=== PATIENT | female | born 1970 | race Caucasian/White ===

== ENCOUNTER 2022-05-22 09:30 | Emergency (ER) | payer OTHER, SELFPAY ==
[2022-05-22 09:34] VITALS: BP 129/70; PULSE 72; RESP 20; TEMP 36.6; O2SAT 100
--- NOTE | 2022-05-22 09:40 | ED.URI ---
HPI - URI/Sore Throat General Chief Complaint: Upper Respiratory Infection Stated Complaint: sore throat and cough Time Seen by Provider: 05/22/22 09:40 Source: patient and RN notes reviewed History of Present Illness HPI Narrative: patient is a 51-year-old female who presents to the Urgent Care with complaints of sore throat and cough. Patient states it started 2 days ago. States that she had a negative COVID test at home. Patient has been taking NyQuil for her symptoms. Denies any ill exposures. Denies of fever, nausea or vomiting. Denies shortness breath or wheezing. No other acute complaints. No acute distress noted. Patient aware of the plan care. Some parts of this dictation were generated by voice recognition software and may contain typographical and/or grammatical inaccuracies. Related Data Home Medications Medication Instructions Recorded Confirmed losartan 100 mg tablet 100 mg PO DAILY 05/22/22 05/22/22 Allergies Allergy/AdvReac Type Severity Reaction Status Date / Time No Known Allergies Allergy Verified 05/22/22 09:48 Review of Systems Review of Systems: CONSTITUTIONAL: Denies fever, chills, or sweats. EYES: Denies visual changes, redness, or discharge. ENT: Denies rhinorrhea, congestion, Antalgia. Reports a sore throat CARDIOVASCULAR: Denies chest pain, palpitations, or edema. RESPIRATORY: reports a productive cough without dyspnea GASTROINTESTINAL: Denies abdominal pain, nausea, vomiting, or diarrhea. GENITOURINARY: Denies dysuria or hematuria. SKIN: Denies rash or itching. MUSCULOSKELETAL: Denies back pain, joint pain, or myalgia. NEUROLOGIC: Denies headache, numbness, or weakness. All other systems reviewed are negative, except as documented in HPI. PMFSH Comments At the time of my signature, I reviewed and agree with the nursing past medical, surgical, social, and family history. There is no relevant family history pertinent to the patient complaint. Exam Narrative: GENERAL: This is a well-nourished, well-developed patient, in no apparent distress. HEAD: normocephalic, atraumatic. EYES: PERRL. Sclera clear/white. Vision is grossly intact. EARS: External ears normal, auditory canals clear and without drainage, TMs normal without perforation. Hearing grossly intact. NOSE: External nose normal with no obvious nasal discharge, nares without redness, no rhinorrhea. THROAT: Mucous membranes moist, mild erythema of the posterior pharynx without exudate or ulceration. Mild postnasal drainage. NECK: Neck supple CARDIOVASCULAR: Regular rate and rhythm without murmurs, gallops, or rubs. RESPIRATORY: Clear to auscultation. Breath sounds equal bilaterally. No wheezes, rales, or rhonchi. SKIN: warm, intact with no suspicious lesions or rash, good texture and turgor. NEURO: awake, alert, and oriented to person, place and time. There were no obvious focal neurologic abnormalities. EXTREMITIES: No clubbing, cyanosis, or edema. Course Course Level of Care: Express Care Visit Vital Signs Vital signs: Vital Signs Temperature 97.9 F 05/22/22 09:34 Pulse Rate 72 05/22/22 09:34 Respiratory Rate 20 05/22/22 09:34 Blood Pressure 129/70 05/22/22 09:34 Pulse Oximetry 100 05/22/22 09:34 Oxygen Delivery Room Air 05/22/22 09:34 Temperature 97.9 F 05/22/22 09:34 Pulse Rate 72 05/22/22 09:34 Respiratory Rate 20 05/22/22 09:34 Blood Pressure 129/70 05/22/22 09:34 Pulse Oximetry 100 05/22/22 09:34 Oxygen Delivery Room Air 05/22/22 09:34 Reviewed MDM - URI/Sore Throat MDM Narrative Medical decision making narrative: Reviewed lab results with the patient. She is aware that strep swab was negative. Educated the patient on culture and we will call in 72 hours if culture is positive antibiotics are necessary. Advised patient to use a daily antihistamine such as Claritin or Zyrtec. Use Benadryl and Flonase prior to bedtime. Use a humidifier at night. Do
== END 2022-05-22 10:13 | disposition home or self-care (01) ==
PROVIDERS: Emergency Provider Nurse Practitioner Family; PCP Family Medicine
DX: J06.9 Acute upper respiratory infection, unspecified (principal); F90.9 Attention-deficit hyperactivity disorder, unspecified type
CPT/HCPCS: 87081; 87880; 99213; G0463